=== PATIENT | male | born 1995 | race Two or more races ===

== ENCOUNTER 2017-03-22 23:21 | Emergency (ER) | payer OTHER ==
[2017-03-23 00:06] VITALS: BP 121/61; PULSE 61; TEMP 97.9; BMI 32.1
[2017-03-23] MEDS ORDERED: diphenhydrAMINE HCL 50 MG CAPSULE PO ONE (00:43)
--- NOTE | 2017-03-23 00:43 | PDOC ---
History of Present Illness - General Chief Complaint: Hives Stated Complaint: ALLERGIC REACTION,HIVES Time Seen by Provider: 03/23/17 00:26 History Source: Patient - History of Present Illness Initial Comments: 03/23/17 00:40 21 year old male with hives to body due to unknown exposure. no difficulty breath, no oral swelling. patient denies taking medication at home. pmhx: asthma 03/23/17 00:43 Past History - Past Medical History Allergies/Adverse Reactions: Allergies Allergy/AdvReac Type Severity Reaction Status Date / Time alcohol Allergy Verified 03/23/17 00:07 latex Allergy Verified 03/23/17 00:07 petrolatum,white Allergy Verified 03/23/17 00:07 [From Petroleum Jelly] Home Medications: Ambulatory Orders Diphenhydramine HCl [Benadryl -] 25 mg PO Q6H PRN #28 capsule 03/23/17 Ibuprofen [Motrin -] 600 mg PO TID PRN 03/23/17 - Psycho/Social/Smoking Cessation Hx Suicidal Ideation: No Smoking History: Never smoked *Physical Exam - Vital Signs Last Vital Signs Temp Pulse Resp BP Pulse Ox 97.9 F 61 16 121/61 98 03/23/17 00:05 03/23/17 00:05 03/23/17 00:05 03/23/17 00:05 03/23/17 00:05 - Physical Exam General Appearance: Yes: Appropriately Dressed HEENT: positive: Other (uvula midline) Respiratory/Chest: positive: Lungs Clear, Normal Breath Sounds Cardiovascular: positive: Regular Rhythm, Regular Rate Gastrointestinal/Abdominal: positive: Normal Bowel Sounds, Soft Integumentary: positive: Normal Color, Dry, Warm, Other (generalized hive to trunk and back) 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 NML intact, Alert, Normal Mood/Affect Progress Note - Progress Note Progress Note: a: mild allergic reaction P: benadryl *DC/Admit/Observation/Transfer Diagnosis at time of Disposition: Allergic reaction Qualifiers: Encounter type: initial encounter Qualified Code(s): T78.40XA - Allergy, unspecified, initial encounter - Discharge Dispostion Disposition: HOME - Prescriptions Prescriptions: Diphenhydramine HCl [Benadryl -] 25 mg PO Q6H PRN #28 capsule PRN Reason: itching - Patient Instructions Printed Discharge Instructions: Hives Additional Instructions: take Benadryl as prescribed as needed follow up with your doctor if you develop difficulty breathing, worsening symptoms return to the ED immediately.
[2017-03-23] MEDS ORDERED: diphenhydrAMINE HCL 25 MG CAPSULE (FP) PO ONE (00:57)
== END 2017-03-23 01:01 | disposition home or self-care (01) ==
LOC: JER 23:21
DX: T78.40XA Allergy, unspecified, initial encounter (principal)
CPT/HCPCS: 99281-25

== ENCOUNTER 2017-11-15 09:10 | Emergency (ER) | payer SELFPAY ==
[2017-11-15 09:21] VITALS: BMI 31.8
--- NOTE | 2017-11-15 09:42 | PDOC ---
History of Present Illness - History of Present Illness Initial Comments: 11/15/17 10:15 The patient is a 22 year old male, with a significant past medical history of asthma, who presents to the emergency department with chest pain and right leg wound for 1 week. Patient was seen at [facility] 1 week ago after experiencing right sided chest pain and right leg tenderness. He was given IV antibiotics but refused to be admitted. He describes his chest pain as squeezing, sharp, and twisting, worse with movement, intermittent, lasts for 1 minute and then goes away. He states that his leg pain feels worse but looks better, and some of the swelling had went down. He has also been experiencing some shortness of breath and cough w/ black sputum. He recently quit smoking cigarettes a couple of days ago and frequently uses marijuana. He denies any sick contacts or recent travel abroad. He denies any recent fevers , chills, headache or dizziness. He denies any recent nausea, vomit, diarrhea or constipation. He denies any recent dysuria, frequency, urgency or hematuria. Allergies: petroleum jelly, alcohol, latex Past surgical history: None reported. Social History: Marijuana use. Former smoker (quit couple of days ago- 10 cigarettes/day). Denies EtOH use and recreational drug use. Primary Care Physician: Mendy Torres <Paulina Santana - Last Filed: 11/15/17 10:24> - General History Source: Patient Exam Limitations: No Limitations <Gerry Mccurdy - Last Filed: 11/15/17 11:41> - General Chief Complaint: Wound Stated Complaint: RT LEG WOUND/CHEST PAIN Time Seen by Provider: 11/15/17 09:25 Past History <Paulina Santana - Last Filed: 11/15/17 10:24> - Past Medical History COPD: No - Suicide/Smoking/Psychosocial Hx Smoking History: Never smoked Information on smoking cessation initiated: No Hx Alcohol Use: No Drug/Substance Use Hx: Yes (MARIJUANA) Substance Use Type: None <Gerry Mccurdy - Last Filed: 11/15/17 11:41> - Past Medical History Allergies/Adverse Reactions: Allergies Allergy/AdvReac Type Severity Reaction Status Date / Time alcohol Allergy Verified 11/15/17 09:21 latex Allergy Verified 11/15/17 09:21 petrolatum,white Allergy Verified 11/15/17 09:21 [From Petroleum Jelly] Home Medications: Ambulatory Orders Diphenhydramine HCl [Benadryl -] 25 mg PO Q6H PRN #28 capsule 03/23/17 Ibuprofen [Motrin -] 600 mg PO TID PRN 03/23/17 Clindamycin [Cleocin -] 300 mg PO Q6HPO #28 capsule 11/15/17 Ibuprofen 600 mg PO Q6H PRN #20 tablet 11/15/17 Review of Systems - Review of Systems Comments:: 11/15/17 10:15 GENERAL/CONSTITUTIONAL: No fever or chills. No weakness. HEAD, EYES, EARS, NOSE AND THROAT: No change in vision. No ear pain or discharge. No sore throat. CARDIOVASCULAR: +chest pain. No shortness of breath. RESPIRATORY: No cough, wheezing, or hemoptysis. GASTROINTESTINAL: No nausea, vomiting, diarrhea or constipation. GENITOURINARY: No dysuria, frequency, or change in urination. MUSCULOSKELETAL: No joint or muscle swelling or pain. No neck or back pain. SKIN: +Erythema on anterior portion of right cooper. NEUROLOGIC: No headache, vertigo, loss of consciousness, or change in strength/ sensation. ENDOCRINE: No increased thirst. No abnormal weight change. HEMATOLOGIC/LYMPHATIC: No anemia, easy bleeding, or history of blood clots. ALLERGIC/IMMUNOLOGIC: No hives or skin allergy. <Paulina Santana - Last Filed: 11/15/17 10:24> *Physical Exam - Vital Signs Last Vital Signs Temp Pulse Resp BP Pulse Ox 98.2 F 79 19 148/50 99 11/15/17 09:19 11/15/17 09:19 11/15/17 09:19 11/15/17 09:19 11/15/17 09:19 - Physical Exam Comments: 11/15/17 10:16 GENERAL: Awake, alert, and fully oriented, in no acute distress HEAD: No signs of trauma EYES: PERRLA, EOMI, sclera anicteric, conjunctiva clear ENT: Auricles normal inspection, hearing grossly normal, nares patent, oropharynx clear without exudates. Moist mucosa NECK: Normal ROM, supple, no lymphadenopathy, JVD, or masses CHEST: Intermittent, reproducible right-sided chest pain LUNGS: Breath sounds equal, clear to auscultation bilaterally. No wheezes, and no crackles HEART: Regular rate and rhythm, normal S1 and S2, no murmurs, rubs or gallops ABDOMEN: Soft, nontender, normoactive bowel sounds. No guarding, no rebound. No masses EXTREMITIES: Normal range of motion, no edema. No clubbing or cyanosis. No cords, erythema, or tenderness NEUROLOGICAL: Cranial nerves II through XII grossly intact. Normal speech, normal gait SKIN: [id number] erythema, tenderness to palpation, no induration, no fluctuance. Right calf tenderness to palpation. <Paulina Santana - Last Filed: 11/15/17 10:24> - Vital Signs Last Vital Signs Temp Pulse Resp BP Pulse Ox 98.2 F 79 19 148/50 99 11/15/17 09:19 11/15/17 09:19 11/15/17 09:19 11/15/17 09:19 11/15/17 09:19 <Gerry Mccurdy - Last Filed: 11/15/17 11:41> Heart Score/ECG Review - History History: Slightly suspicious - Electrocardiogram EKG: Normal - Age Age: </= 45 - Risk Factors Risk Factors Heart Score: Yes Smoking History, Yes Hx Obesity Based on the list above the patient has:: 1-2 risk factors #1 ECG reviewed & interpreted by me at: 09:15 11/15/17 10:35 NSR 72, no std/ruba, normal axis, normal intervals, QTC 409 msec <Gerry Mccurdy - Last Filed: 11/15/17 11:41> ED Treatment Course - LABORATORY CBC & Chemistry Diagram: 11/15/17 10:05 11/15/17 10:05 <Gerry Mccurdy - Last Filed: 11/15/17 11:41> Medical Decision Making - Medical Decision Making 11/15/17 10:27 A portion of this note was documented by scribe services under my direction. I have reviewed the details of the note, within reason, and agree with the documentation with the following case summary and management plan written by me. Patient treated in the ED. Nursing notes are reviewed and incorporated into the medical decision-making. Vital signs reviewed. Peripheral IV access obtained by the nurse, laboratory studies are drawn and sent, reviewed and interpreted by myself. Vital Signs Temp Pulse Resp BP Pulse Ox 98.2 F 79 19 148/50 99 11/15/17 09:19 11/15/17 09:19 11/15/17 09:19 11/15/17 09:19 11/15/17 09:19 22-year-old Male with past medical history of asthma presents to the emergency department for right anterior cooper erythema for several days. Patient reported that he was sleeping at a family member's home and woke up with this diffuse right anterior cooper erythema. Also developed right-sided reproducible chest pain that was sharp and achy. Would intermittently come for a minute and resolve on its own. States may be making him somewhat short of breath but denies exertional component. Has been taking his albuterol with no relief. With his right erythema, he had went to [facility] where he was evaluated with blood cultures, chest x-ray. The patient was instructed that he should be admitted to the hospital but given that the patient had a bad interaction with staff, the patient left AGAINST MEDICAL ADVICE. He has been discharged with cephalexin 500 mg every 6 hours which he reports he was adherent to. However, the family noted that the erythema was persistent and not getting better. Reports intermittent tactile fevers and chills. Because of the persistence of symptoms and the pain in the right leg and the right-sided chest, the patient came into the ED. Patient most certainly has cellulitis of the right anterior cooper not improving significantly with cephalexin. Adult sepsis protocol initiated and we'll obtain blood cultures. Right lower extremity duplex ordered to rule out DVT. The patient's EKG is normal and I doubt acute coronary syndrome. However, we'll obtain a chest x-ray. Patient does endorse some darkish coloring cough but patient reports smoking history. We'll obtain a chest x-ray. We'll consider admitting the patient for IV antibiotics depending on results. 11/15/17 10:35 Dr. Hurd had performed a bedside echocardiogram which demonstrated no pericardial effusion. 11/15/17 11:36 CBC, BMP 11/15/17 10:05 11/15/17 10:05 CMP Sodium 142 mmol/L (136-145) 11/15/17 10:05 Potassium 4.5 mmol/L (3.5-5.1) 11/15/17 10:05 Chloride 108 mmol/L (98-107) H 11/15/17 10:05 Carbon Dioxide 28 mmol/L (21-32) 11/15/17 10:05 Anion Gap 6 (8-16) L 11/15/17 10:05 BUN 18 mg/dL (7-18) 11/15/17 10:05 Creatinine 0.7 mg/dL (0.7-1.3) 11/15/17 10:05 Creat Clearance w eGFR > 60 (>60) 11/15/17 10:05 Random Glucose 90 mg/dL (74-106) 11/15/17 10:05 Lactic Acid 1.0 mmol/L (0.4-2.0) 11/15/17 10:05 Calcium 8.3 mg/dL (8.5-10.1) L 11/15/17 10:05 Total Bilirubin 0.4 mg/dL (0.2-1.0) 11/15/17 10:05 AST 12 U/L (15-37) L 11/15/17 10:05 ALT 33 U/L (12-78) 11/15/17 10:05 Alkaline Phosphatase 43 U/L (45-117) L 11/15/17 10:05 Creatine Kinase 214 IU/L (39-308) 11/15/17 10:05 Creatine Kinase Index 0.4 % (0.0-5.0) 11/15/17 10:05 CK-MB (CK-2) < 1.000 ng/mL (0.5-3.6) 11/15/17 10:05 Troponin I < 0.02 ng/ml (0.00-0.05) 11/15/17 10:05 Total Protein 7.1 g/dl (6.4-8.2) 11/15/17 10:05 Albumin 3.6 g/dl (3.4-5.0) 11/15/17 10:05 Chest radiograph reviewed: No acute findings. The patient was initially offered a duplex. However, the patient absolutely does not want to take off his pants. I have a low pre-test probability for DVT and will allow him to defer at this time. I advised that if his legs become swollen to return to the ED. Patient's labs are reassurring. He feels otherwise well. At this time, will switch his antibiotics to clindamycin. I advised that if he develops severe diarrhea to return to the ER as soon as possible. Patient verbalizes understanding and agrees with plan. discharge diagnosis: Cellulitis, atypical chest pain I discussed the physical exam findings, ancillary test results and final diagnoses with the patient. I answered all of the patient's questions. The patient was satisfied with the care received and felt comfortable with the discharge plan and treatment plan. The patient will call their primary care physician within 24 hours to arrange follow-up and will return to the Emergency Department with any new, persistant or worsening symptoms. <Gerry Mccurdy - Last Filed: 11/15/17 11:41> *DC/Admit/Observation/Transfer - Attestations Scribe Attestion: 11/15/17 10:24 Documentation prepared by Paulina Santana, acting as medical biller coder for Gerry Mccurdy MD <Paulina Santana - Last Filed: 11/15/17 10:24> - Discharge Dispostion Admit: No <Gerry Mccurdy - Last Filed: 11/15/17 11:41> Diagnosis at time of Disposition: Atypical chest pain Cellulitis Qualifiers: Site of cellulitis: extremity Site of cellulitis of extremity: lower extremity Laterality: right Qualified Code(s): L03.115 - Cellulitis of right lower limb - Discharge Dispostion Disposition: HOME Condition at time of disposition: Stable - Prescriptions Prescriptions: Clindamycin [Cleocin -] 300 mg PO Q6HPO #28 capsule Ibuprofen 600 mg PO Q6H PRN #20 tablet PRN Reason: Pain/Fever - Referrals Referrals: Mendy Torres [Primary Care Provider] - - Patient Instructions Printed Discharge Instructions: DI for Cellulitis -- Adult, DI for Atypical Chest Pain Additional Instructions: Your blood work and ECG is normal. Your chest xray is unremarkable as well. For your skin infection, please stop the cephalexin and start taking clindamycin every 6 hours for the next 7 days. Please complete your antibiotics. If you notice diarrhea or worsening rash, please return to the ER. Follow up with your doctor. - Post Discharge Activity Forms/Work/School Notes: Back to Work
[2017-11-15] MEDS ORDERED: KETOROLAC TROMETHAMINE 30 MG/1 ML VIAL IVPUSH ONE (10:03)
[2017-11-15] MEDS ORDERED: SODIUM CHLORIDE 1,000 ML IV STA (10:03)
[2017-11-15 10:35] LABS: BASO % 1.2 % (0-2.0); EOS % 2.8 % (0-4.5); MCH 29.6 pg (25.7-33.7); MCHC 32.8 g/dl (32.0-35.9); MEAN CELL VOLUME 90.3 fl (80-96); MEAN PLT VOLUME 9.7 fl (7.5-11.1); NEUT % 60.4 % (42.8-82.8); PLATELET COUNT 220 K/MM3 (134-434); RDW 14.5 % (11.9-15.9); WHITE BLOOD COUNT 8.2 K/mm3 (4.0-10.0)
[2017-11-15] MEDS ORDERED: KETOROLAC TROMETHAMINE 30 MG/1 ML VIAL ONE (10:42)
[2017-11-15 10:43] LABS: INR 0.97 (0.82-1.09)
[2017-11-15 10:46] LABS: ACTIVATED PTT 27.7 SECONDS (26.9-34.4)
[2017-11-15 10:54] LABS: ALBUMIN 3.6 g/dl (3.4-5.0); ANION GAP 6 (8-16); CALCIUM 8.3 mg/dL (8.5-10.1); CO2 28 mmol/L (21-32); CREATININE 0.7 mg/dL (0.7-1.3); GLUCOSE,RANDOM 90 mg/dL (74-106); SGOT/AST 12 U/L (15-37); SGPT/ALT 33 U/L (12-78)
[2017-11-15 10:59] LABS: ALK PHOS 43 U/L (45-117); BILIRUBIN,TOTAL 0.4 mg/dL (0.2-1.0); CPK 214 IU/L (39-308); TOT PROT 7.1 g/dl (6.4-8.2); TROPONIN I < 0.02 ng/ml (0.00-0.05)
[2017-11-15] MEDS ORDERED: CLINDAMYCIN 600MG PREMIX IVPB 600 MG/50 ML BAG IVPB ONE ×2 (11:18→12:02)
[2017-11-15 12:21] VITALS: BP 126/75; PULSE 68; TEMP 97.2
--- NOTE | 2017-11-16 01:23 | EKG ---
Test Reason : Blood Pressure : / mmHG Vent. Rate : 072 BPM Atrial Rate : 072 BPM P-R Int : 200 ms QRS Dur : 090 ms QT Int : 374 ms P-R-T Axes : 038 039 036 degrees QTc Int : 409 ms NORMAL SINUS RHYTHM NORMAL ECG NO PREVIOUS ECGS AVAILABLE Confirmed by JEMIMA LAWSON MD ([id number]) on 11/16/2017 1:23:20 AM Referred By: Confirmed By:JEMIMA LAWSON MD
== END 2017-11-15 12:22 | disposition home or self-care (01) ==
LOC: JER 09:10
PROC: 3E03329 Introduction of Other Anti-infective into Peripheral Vein, Percutaneous Approach (ICD-10-PCS; principal; 2017-11-15)
PROC: 3E0333Z Introduction of Anti-inflammatory into Peripheral Vein, Percutaneous Approach (ICD-10-PCS; 2017-11-15)
DX: L03.115 Cellulitis of right lower limb (principal); L54 Erythema in diseases classified elsewhere; R07.89 Other chest pain
CPT/HCPCS: 71010-TC; 80053; 82550; 82553; 83605; 84484; 85025; 85610; 85730; 86850; 86900; 86901; 87040; 93005; 93010; 99283-25

== ENCOUNTER 2017-12-05 08:46 | Emergency (ER) | payer SELFPAY ==
[2017-12-05 08:52] VITALS: BP 134/74; PULSE 82; TEMP 97.8; BMI 31.4
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
== END 2017-12-05 09:50 | disposition home or self-care (01) ==
LOC: JERFT 08:46
DX: M62.830 Muscle spasm of back (principal); F17.210 Nicotine dependence, cigarettes, uncomplicated
CPT/HCPCS: 99281-25